=== PATIENT | male | born 1950 | race Caucasian/White ===

== ENCOUNTER → 2017-06-29 | Outpatient (CLI) | payer OTHER ==
[~2017-06-29] MED LIST: AUGMENTIN 875875 MG PO; CYCLOBENZAPRINE5 MG; ERIVEDGE150 MG PO; LISINOPRIL10 MG PO; NAMENDA XR28 MG PO; NORVASC 2.5 MG2.5 M1 PO; SUPER B COMPLE150 MG PO; VITAMIN D2000 UNIT PO; XARELTO15 MG PO; XARELTO20 MG PO
== END ==
LOC: M.ULTRA 11:00
DX: M79.605 Pain in left leg (principal); R60.0 Localized edema